=== PATIENT | female | born 1950 | race Caucasian/White ===

== ENCOUNTER 2019-02-11 10:25 | Emergency (ER) | payer MEDICARE, MEDICAID ==
[2019-02-11 11:19] VITALS: BP 123/63
--- NOTE | 2019-02-11 11:40 | UC ---
Minor Trauma HPI - HPI Summary HPI Summary: Pt presents with c/o right side rib pain, s/p falling down 13 stairs 2 weeks ago. Pt was seen by PCP who has given her flexeril and tramadol for pain management. pt states that pain has not gotten better and is concerned that she may have fractured ribs. Pt states she hit her head and is sob with exertion. - History of Current Complaint Chief Complaint: UCGeneralIllness Stated Complaint: RIB PAIN -FELL A FEW WEEKS AGO Time Seen by Provider: 02/11/19 11:15 Hx Obtained From: Patient ?: No Onset/Duration: Sudden Onset, Lasting Weeks, Still Present Onset Of Pain: Post Accident Severity Initially: Moderate Severity Currently: Moderate Pain Intensity: 7 Mechanism Of Injury: Fall From A Standing Position Aggravating Factor(s): Ambulation, Coughing, Deep Breaths, Movement Alleviating Factor(s): Nothing - Risk Factors Penetrating Injury Risk Factors: Negative Compartment Syndrome Risk Factors: Pain - Allergies/Home Medications Allergies/Adverse Reactions: Allergies Allergy/AdvReac Type Severity Reaction Status Date / Time codeine Allergy See Comment Verified 02/11/19 11:04 Home Medications: Home Medications ALPRAZolam [Xanax Xr] 1 tab QPM 02/11/19 [History Confirmed 02/11/19] Cyclobenzaprine TAB* [Flexeril 10 MG TAB*] 10 mg PO TID PRN 02/11/19 [History Confirmed 02/11/19] Metoprolol Tartrate TAB* [Lopressor TAB*] 1 tab QAM 02/11/19 [History Confirmed 02/11/19] traMADol TAB* [Ultram*] 1 - 2 tab PO TID PRN 02/11/19 [History Confirmed ] PMH/Surg Hx/FS Hx/Imm Hx Previously Healthy: Yes - Surgical History Surgical History: Yes Surgery Procedure, Year, and Place: LEFT masectomy. Bilat knee. Cataract sx - Family History Known Family History: Positive: Cardiac Disease - Social History Occupation: Employed Full-time Lives: With Family Alcohol Use: None Substance Use Type: None Smoking Status (MU): Never Smoked Tobacco Have You Smoked in the Last Year: No Review of Systems All Other Systems Reviewed And Are Negative: Yes Constitutional: Positive: Negative Skin: Positive: Negative Eyes: Positive: Negative ENT: Positive: Negative Respiratory: Positive: Shortness Of Breath Cardiovascular: Positive: Negative Gastrointestinal: Positive: Negative Genitourinary: Positive: Negative Motor: Positive: Negative Neurovascular: Positive: Negative Musculoskeletal: Positive: Arthralgia, Myalgia Neurological: Positive: Negative Psychological: Positive: Negative Is Patient Immunocompromised?: No Physical Exam Triage Information Reviewed: Yes Appearance: Well-Appearing Vital Signs: Initial Vital Signs Temp 99 F 02/11/19 11:08 Pulse 56 02/11/19 11:08 Resp 16 02/11/19 11:08 BP 123/63 02/11/19 11:08 Pulse Ox 100 02/11/19 11:08 Vital Signs Reviewed: Yes Eye Exam: Normal ENT Exam: Normal Dental Exam: Normal Neck exam: Normal Respiratory Exam: Normal Respiratory: Positive: Lungs clear, Normal breath sounds, No respiratory distress Cardiovascular Exam: Normal Musculoskeletal Exam: Normal Musculoskeletal: Positive: Strength Intact, ROM Intact Neurological Exam: Normal Psychological Exam: Normal Skin Exam: Normal Diagnostics - Radiology No standard instances Radiology Interpretation Completed By: Radiologist - Vending Attendant: Richie Frias F ([id number]) Landscape Architect And Planner: RYAN (FRANCISCOANCE) Report Date: 02/2019 11:28:00 Report Status: Final Start of Report Content = Patient Name: FIDENCIO BUSTAMANTE Medical Record#: [id number] Ordering Physician : Francisca Goldstein SHAREPOINT ANALYST Acct.#: [id number] : 1950 Age: 68 Sex: F Location: [facility] Exam Date: 02/11/191127 ADM Status: REG ER Order Information: RIBS RT UNI W/PA CH MIN 3 VWS Accession Number: [id number] CPT: 77121 INDICATION: Right rib injury. COMPARISON: There are no prior studies available for comparison. TECHNIQUE: 3 views of the right ribs and dual-energy PA views of the chest were obtained. FINDINGS: No displaced fracture is seen. The heart is within normal limits in size. The lungs are underinflated. There are linear densities at the right lung base most consistent with subsegmental atelectasis or scarring. The lungs are otherwise clear. No pleural effusion or pneumothorax is seen. IMPRESSION: NO EVIDENCE FOR DISPLACED RIB FRACTURE. <Electronically signed by Richie Frias MD in OV> 02/11/191156 Dictated By: Richie Frias MD Dictated Date/Time: 02/11/191153 Transcribed Date/Time: 02/11/191153 Copy to: CC:Vito Ruelas MD; Sandra Taylor MD; Francisca Goldstein NP Imaging - [facility] - [facility] [address] [place] [address] ph [phone]) ph ([phone]) ph ([phone]) End of Report Content ========= Minor Trauma Course/Dx - Differential Dx/Diagnosis Differential Diagnosis/HQI/PQRI: Contusion(s), Fracture Provider Diagnosis: Rib pain on right side, Contusion of rib on right side Discharge ED - Sign-Out/Discharge Documenting (check all that apply): Patient Departure All imaging exams completed and their final reports reviewed: Yes - Discharge Plan Condition: Stable Disposition: HOME Patient Education Materials: Rib Contusion (ED) Referrals: Brandon FRAGA,Sandra [Primary Care Provider] - If Needed - Billing Disposition and Condition Condition: STABLE Disposition: Home - Attestation Statements Provider Attestation: Per institutional requirements, I have reviewed the chart, however, I was not consulted specifically or made aware of this patient by the midlevel provider. I did not personally evaluate, interact with , or disposition this patient.
== END 2019-02-11 12:15 | disposition home or self-care (01) ==
LOC: UCCORT 10:25
DX: S20.211A Contusion of right front wall of thorax, initial encounter (principal); R07.81 Pleurodynia; Z88.5 Allergy status to narcotic agent; W10.9XXA Fall (on) (from) unspecified stairs and steps, initial encounter; Y92.9 Unspecified place or not applicable
CPT/HCPCS: 99201; G0463